=== PATIENT | male | born 1970 | race Caucasian/White ===

== ENCOUNTER → 2024-04-15 12:33 | Outpatient (REF) | payer OTHER, SELFPAY | LOC: HWRCS 12:33 | PROVIDERS: ATTENDING PHYSICIAN Physician Assistant | DX: R01.1 Cardiac murmur, unspecified (principal) | CPT/HCPCS: 93306 ==

== ENCOUNTER → 2024-08-10 07:27 | Outpatient (REF) | payer OTHER, SELFPAY | LOC: MRI 07:27 | PROVIDERS: ATTENDING PHYSICIAN Internal Medicine Cardiovascular Disease; FAMILY PHYSICIAN Physician Assistant | DX: Q23.1 Congenital insufficiency of aortic valve (principal) | CPT/HCPCS: 75561; 75565; A9585 ==

== ENCOUNTER → 2025-09-22 07:17 | Outpatient (REF) | payer OTHER, SELFPAY | LOC: RCS 07:17 | PROVIDERS: ATTENDING PHYSICIAN Internal Medicine Cardiovascular Disease; FAMILY PHYSICIAN Physician Assistant | DX: Q23.1 Congenital insufficiency of aortic valve (principal); I77.810 Thoracic aortic ectasia | CPT/HCPCS: 93306 ==